=== PATIENT | male | born 1955 ===

== ENCOUNTER 2021-02-22 11:42 | Outpatient (REF) | payer SELFPAY ==
[2021-02-22 14:50] LABS: ALT 45 U/L (16-63); AST 29 U/L (15-37); Alkaline Phosphatase 77 U/L (46-116); Anion Gap 12.4 mmol/L (3-11); BUN 16 mg/dL (7-18); Bilirubin, Total 0.9 mg/dL (0.2-1.0); CO2 23.6 mmol/L (21.0-32.0); CREATININE 0.9 mg/dL (0.70-1.30); Calcium 8.9 mg/dL (8.5-10.1); Chloride 107 mmol/L (98-107); Glucose 155 mg/dL (74-106); Potassium 4.3 mmol/L (3.5-5.1); Sodium 143 mmol/L (136-145); Total Protein 7.1 g/dL (6.4-8.2)
[2021-02-22 14:59] LABS: Hemoglobin A1C 7.3 % (<5.7)
[2021-02-22 17:49] LABS: COMMENT (LAB VIEW ONLY) 253.87 mg/dL; Microalb ug/mg Crea 7.9 ug/mg Cr
[2021-02-22 22:36] LABS: Calculated LDL 57 mg/dL (<100); Cholesterol 131 mg/dL (<200); HDL Cholesterol 53 mg/dL (40-60); Triglyceride 109 mg/dL (<150)
[2021-02-25 09:27] LABS: PSA, Screening 0.5 ng/mL (0.0-4.5)
== END 2021-02-22 11:43 | disposition home or self-care (01) ==
LOC: NCHCN 11:42
PROVIDERS: Visit Provider Physician Assistant
DX: Z12.5 Encounter for screening for malignant neoplasm of prostate (principal); E11.9 Type 2 diabetes mellitus without complications; E78.5 Hyperlipidemia, unspecified
CPT/HCPCS: 80053; 80061; 84153; 82043; 82570; 83036